=== PATIENT | male | born 1955 | race Caucasian/White ===

== ENCOUNTER 2021-10-15 12:36 | Outpatient (CLI) | payer MEDICARE, SELFPAY ==
[2021-10-15 13:17] LABS: Hematocrit 46.6 % (42.0-52.0); Hemoglobin 16.5 g/dL (14.0-18.0); Mean Corpuscular HGB Conc 35.4 g/dl (32-36); Mean Corpuscular Hemoglobin 31.8 pg (26-34); Mean Corpuscular Volume 89.8 fl (80-100); Platelet Count Result 178 k/mm3 (150-375); Red Blood Count 5.19 M/mm3 (4.6-6.20); Red Cell Distribution Width 12.1 % (11.5-14.5); White Blood Count 6.7 K/mm3 (4.5-10.0)
[2021-10-15 13:29] LABS: Alanine Aminotransferase 23 U/L (4-50); Albumin Level 4.6 g/dL (3.5-5.1); Alkaline Phosphatase 88 U/L (38-126); Anion Gap 7 mmol/L (8-16); Aspartate Amino Transferase 25 U/L (17-59); Bilirubin,Total 0.6 mg/dL (0.2-1.3); Blood Urea Nitrogen 13 mg/dL (9-20); CRP 0.6 mg/dL (<1.0); Calcium 9.7 mg/dL (8.4-10.2); Carbon Dioxide 25 mmol/L (22-30); Chloride 105 mmol/L (98-107); Estimated Glomerular Filt Rate > 60; Glucose 102 mg/dL (65-110); Sodium 137 mmol/L (137-145)
[2021-10-15 13:44] LABS: Parathyroid Intact 41.8 pg/mL (7.5-53.5)
[2021-10-15 14:59] LABS: Erythrocyte Sedimentation Rate 12 mm/hr (0-20)
[2021-10-18 05:51] LABS: Thyroid Peroxidase Antibodies 1 IU/mL (<9)
[2021-10-18 23:48] LABS: Anti Cyclic Citrullinated Pept <16 Units (<20)
== END 2021-10-15 12:37 | disposition home or self-care (01) ==
PROVIDERS: PCP Internal Medicine; Visit Provider Internal Medicine
DX: M15.9 Polyosteoarthritis, unspecified (principal); M25.9 Joint disorder, unspecified
CPT/HCPCS: 36415; 80053; 83970; 84550; 85027; 85652; 86140; 86200; 86376

== ENCOUNTER 2021-12-23 10:46 | Outpatient (CLI) | payer MEDICARE, SELFPAY ==
--- NOTE | ~2021-12-23 | XR_ITS ---
EXAM: XR hip BI 2V w AP pelvis HISTORY: M19.90 - Unspecified osteoarthritis NUMBNESS TINGLING COMPARISON: None available FINDINGS: Sacral bone island, a benign finding. Midline lower pelvic calcified calcifications, likel y prostatic. Pelvic phleboliths. Bilateral superior joints hip space narrowing and sclerosis. No frac ture or dislocation. IMPRESSION: Mild bilateral hip osteoarthritis. Reviewed, dictated and finalized at location K.
--- NOTE | ~2021-12-23 | XR_ITS ---
EXAM: XR hand BI arthritis min 3V HISTORY: M19.90 - Unspecified osteoarthritis, unspecified site PAIN COMPARISON: None available FINDINGS: Normal mineralization. Scattered joint space narrowing, subchondral sclerosis, subchondral cysts, and osteophytosis, with appearance and locations typical for osteoarthritis. Most pronounced changes noted at the interphalangeal joints of the thumbs, second and third MCP joints bilaterally, d istal radial ulnar joints, and the bilateral triscaphe and trapezium metacarpal joints No fracture or dislocation. No abnormal soft tissue calcification. IMPRESSION: Radiographic findings typical of osteoarthritis of the bilateral hands. Reviewed, dictated and finalized at location K.
--- NOTE | ~2021-12-23 | XR_ITS ---
EXAM: XR lumbar spine min 4V HISTORY: M19.90 - Unspecified osteoarthritis numbness tingling legs COMPARISON: None available FINDINGS: 5 nonrib-bearing lumbar-type vertebral bodies with intact pedicles. Multilevel moderate an d severe disc space narrowing, with prominent anterior and lateral osteophytosis. No pars defects. Va cuum phenomenon at L2-3 and L3-4. Hypertrophy and sclerosis in the lower lumbar facets. Abdominal aor tic calcifications, without visible aneurysm. IMPRESSION: Multilevel lumbar degenerative disc disease, severe at L2-3 and L3-4. Lower lumbar facet arthropathy. Reviewed, dictated and finalized at location K. IMPRESSION: Multilevel lumbar degenerative disc disease, severe at L2-3 and L3-4. Lower lum bar facet arthropathy.
== END 2021-12-23 10:47 | disposition home or self-care (01) ==
LOC: ANHIMG 10:49
PROVIDERS: PCP Internal Medicine; Visit Provider Internal Medicine
DX: M16.0 Bilateral primary osteoarthritis of hip (principal); M19.041 Primary osteoarthritis, right hand; M19.042 Primary osteoarthritis, left hand; M51.36 Other intervertebral disc degeneration, lumbar region
CPT/HCPCS: 72110; 73130; 73521

== ENCOUNTER 2022-09-14 10:14 | Outpatient (CLI) | payer MEDICARE, SELFPAY ==
[2022-09-14 10:51] LABS: Alanine Aminotransferase 21 U/L (6-50); Albumin Level 4.5 g/dL (3.5-5.1); Alkaline Phosphatase 89 U/L (38-126); Anion Gap 6 mmol/L (8-16); Aspartate Amino Transferase 24 U/L (17-59); Bilirubin,Total 0.7 mg/dL (0.2-1.3); Blood Urea Nitrogen 9 mg/dL (9-20); Calcium 8.9 mg/dL (8.4-10.2); Carbon Dioxide 27 mmol/L (22-30); Chloride 102 mmol/L (98-107); Estimated Glomerular Filt Rate > 60; Glucose 123 mg/dL (65-110); Potassium 4.1 mmol/L (3.4-5.0); Sodium 135 mmol/L (137-145)
== END 2022-09-14 10:15 | disposition home or self-care (01) ==
PROVIDERS: PCP Internal Medicine; Visit Provider Internal Medicine
DX: M15.9 Polyosteoarthritis, unspecified (principal); G62.9 Polyneuropathy, unspecified
CPT/HCPCS: 36415; 80053